=== PATIENT | male | born 1995 | race Caucasian/White ===

== ENCOUNTER 2019-12-31 12:57 | Emergency (ER) | payer OTHER, SELFPAY ==
[2019-12-31 12:58] VITALS: BP 160/88; PULSE 77; RESP 18; TEMP 36.4; O2SAT 97; BMI 40.6
--- NOTE | 2019-12-31 13:01 | RAD_ITS ---
STUDY: X-RAY - LEFT ANKLE REASON FOR EXAM: Male, 24 years old. And quot;WALKING DOWN THE STREET, NEXT THING I KNEW I WAS ON THE GROUND and quot; PAIN LATERAL TECHNIQUE: 3 view(s) of the ankle. COMPARISON: None. FINDINGS: Normal visualized distal tibia and fibula. Normal medial and lateral malleoli. Normal tibiotalar articulation and ankle mortise. Normal visualized talus and calcaneus. The visualized subtalar, talonavicular, calcaneocuboid and tarsal articulations are normal. Soft tissue swelling overlying the lateral malleolus. RAD/Ankle min 3 Views IMPRESSION: Soft tissue swelling overlying the lateral malleolus. Electronically Signed: Mohsen Latif, at 13:15 EDT , Service support ,
--- NOTE | 2019-12-31 14:25 | ED.VIS.LOWEX ---
History of Present Illness Chief Complaint: Lower Extremity Injury Informant: Patient Occurred: Today Mechanism/Context: Fall, Work Related Narrative: patient is a 24-year-old male with history of prior sprained ankles presenting with left ankle pain. Patient states he was walking around the corner and somehow twisted his ankle and fell. He did not hit his head. No other injuries. Has pain over the lateral aspect of his left ankle. Has been able to walk on it but states it is painful. Did not take anything for pain prior to arrival. No associated numbness or tingling. No other complaints at this time. States this is a Workmen's Compensation case. Past Medical History - Allergies and Home Meds Allergies/Adverse Reactions: Allergies No Known Allergies Allergy (Verified 12/31/19 12:59) Primary Care Physician: [facility] [GROUP OF PHYSICIANS] - Ted Deng MD [Primary Care Provider] - Past Medical History: None Surgical History: no surgical history Review of Systems General: Denies: Chills, Fever, Sweats Eyes: Denies: Visual changes - bilaterally, Diplopia Cardiovascular: Denies: Chest pain, Palpitations Respiratory: Denies: Dyspnea, Cough Gastrointestinal: Denies: Nausea, Vomiting Genitourinary: Denies: Dysuria, Hematuria, Frequency Musculoskeletal: Reports: Extremity Pain - Left ankle pain and swelling. Denies: Back pain Skin: Denies: Rash, Wounds Neurological: Denies: Headache, Weakness, Numbness Physical Exam Vital Signs/Narrative: Vital Signs Temp Pulse Resp BP Pulse Ox 12/31/19 12:58 97.6 F L 77 18 160/88 H 97 Inital Vital Signs reviewed: Yes - Extremity Exam Left Knee: Negative for: Contusion, Deformity, Edema, Limited ROM Left Tib Fib: - - No tenderness of the fibular head. Negative for: Contusion, Deformity, Edema, Limited ROM Left Ankle: Edema, - - Normal Nur test. Tenderness usually of the lateral malleolus with some associated edema and soft tissue swelling.. Negative for: Contusion, Deformity, Limited ROM Left Foot: - - No TTP of the base of the fifth metatarsal. Negative for: Contusion, Deformity, Edema, Limited ROM General: Well nourished, Well developed Head: Normocephalic, Atraumatic Eyes: Perrl, EOMI ENT: No Trauma, Moist Mucous Membranes Neck: Nontender, Full ROM Cardiovascular: Regular rate, Regular rhythm, No murmurs, - - 2+ DP pulse on left Respiratory: No distress, CTA bilaterally, Chest nontender Abdomen: Soft, Nontender, Nondistended, Normal bowel sounds Back: Nontender Skin: Normal color, No rash Neurological: Alert, Oriented x3, Cranial nerves II-XII grossly intact, Normal Strength, Normal Sensation Psychological: Normal affect Diagnostic/Tx/Re-eval Clinical Impression(s) from Imaging Studies Ankle X-Ray 12/31/19 13:01 IMPRESSION: Soft tissue swelling overlying the lateral malleolus. Electronically Signed: Mohsen Latif, at 13:15 EDT , Service support , - Medical Decision Making Patient evaluated for ankle injury. No signs of acute fracture on x-ray. He is neurovascularly intact. Will be treated as a sprain. Workmen's Compensation paperwork is filed and patient is given an Rene wrap and counseled symptomatic treatment including NSAID therapy, ice and elevation. Instructed to follow-up with [facility]. ED Disposition - Plan for ED Patient: Disposition: Home or Assisted Living Diagnosis: Left ankle sprain Instructions: ED Sprain Ankle W X Ray Referrals: Ted Deng MD [Primary Care Provider] - [facility] [GROUP OF PHYSICIANS] - Additional Instructions: Take 600 mg (3 x 200 mg) ibuprofen every 6 hours as needed for pain. If you do not have improvement by Saturday, please call [facility] to arrange follow-up and repeat evaluation.
== END 2019-12-31 15:37 | disposition home or self-care (01) ==
LOC: ED 14:40
PROVIDERS: Emergency Provider Emergency Medicine; PCP Family Medicine
DX: S93.402A Sprain of unspecified ligament of left ankle, initial encounter (principal); W01.0XXA Fall on same level from slipping, tripping and stumbling without subsequent striking against object, initial encounter
CPT/HCPCS: 73610; 99281